=== PATIENT | female | born 2000 | race Caucasian/White ===

== ENCOUNTER → 2025-06-25 10:46 | Outpatient (REF) | payer OTHER, SELFPAY | LOC: OHS 10:46 | PROVIDERS: ATTENDING PHYSICIAN Nurse Practitioner Family | DX: Z23 Encounter for immunization (principal) | CPT/HCPCS: 36415; 86480; 86706 ==

== ENCOUNTER 2025-08-17 21:14 | Emergency (ER) | payer OTHER, SELFPAY ==
[2025-08-17 21:16] VITALS: BP 140/98
--- NOTE | 2025-08-17 21:58 | ED.GENMED ---
History of Present Illness
General
Chief Complaint: Abdominal Pain
Source: patient and family
Time Seen by Provider: 08/17/25 21:43
History of Present Illness
History of Present Illness:
This patient is a 24-year-old female who states she last ate around 1230 today and felt fine. Then, around 2 PM she developed several episodes of nonbloody vomiting and diarrhea which continues. She also notes generalized discomfort in the upper
abdomen and back. She checked her temperature at home with a Tmax of 99.5. She denies diaphoresis, chest pain, dyspnea, urinary symptoms, vaginal bleeding or discharge, leg swelling, or other complaints. Patient started Zepbound approximately 1
week ago and her last dose was yesterday, dose of 2.5 mg per
Past History
Past History
ED Past Medical History: Psychiatric (Anxiety) and Other (Endometriosis, migraines, 'connective tissue disorder'.)
ED Past Surgical History: Appendectomy, Gynecological and Orthopedic
Social History
Tobacco: Non-smoker
Alcohol: None
Drug: None
Personal: Single
Phy Exam
Physical Exam
Physical Exam:
GENERAL: Alert , in no apparent distress
EYE: pupils equal and reactive
NECK: Supple, no significant adenopathy.
ENT: o/p clr, mm dry
CARDIAC: Regular rate and rhythm .
LUNGS: Clear breath sounds bilaterally, no acute respiratory distress, no wheezes/rales/rhonchi
ABDOMEN: Soft, nonspecific upper and mid tenderness, no r/g, no cvat
NEUROLOGICAL: Alert and oriented, no focal neuro deficits
SKIN: Warm and dry, skin intact.
MUSCULOSKELETAL: No edema, well perfused.
PSYCH: Normal and appropriate interaction.
Course
Orders/Labs/Results
Orders:
Orders
08/17/25 21:57
Cardiac Monitoring- Treatment ONCE
0.9% Sodium Chloride 1000 ml [Nss] 1,000 ml IV BOLUS
Ondansetron Injectable [Zofran] 4 mg IV NOW STA
Obstruct Series W/PA Chest [CR Obstruct Series W/pa Chest] Urgent
Comment:
Reason For Exam: abd pain/n/v/d
08/17/25 22:21
Complete Blood Count/No Diff Urgent
Comprehensive Metabolic Panel Urgent
Lipase Urgent
08/17/25 23:53
Dicyclomine [Bentyl] 20 mg PO NOW STA
08/18/25 01:11
C difficile Antigen & Toxins Urgent
KATEY Source: Feces/Stool
Specimen Description:
Date Specimen was Collected: 08/18/25
Time Specimen was Collected: 01:12
Stool Culture Urgent
KATEY Source: Feces/Stool
Specimen Description:
Date Specimen was Collected: 08/18/25
Time Specimen was Collected: 01:12
Stool For WBC Urgent
KATEY Source: Feces/Stool
Specimen Description:
Date Specimen was Collected: 08/18/25
Time Specimen was Collected: 01:12
08/18/25 01:12
Ondansetron Injectable [Zofran] 4 mg IV NOW STA
Abnormal Lab Results
08/17/25
22:21
Chloride 108 H mmol/L
(98-107)
Total Protein 8.4 H g/dl
(6.3-8.2)
08/17/25 22:21
08/17/25 22:21
Vital Signs
Initial and Last Documented VS:
Initial Vital Signs
Temp Pulse Resp BP Pulse Ox
98.2 F 93 18 140/98 97
08/17/25 21:16 08/17/25 21:16 08/17/25 21:16 08/17/25 21:16 08/17/25 21:16
Last Documented Vital Signs
Temp Pulse Resp BP Pulse Ox
98.2 F 86 18 99/53 100
08/17/25 21:16 08/18/25 00:05 08/18/25 00:05 08/18/25 01:16 08/18/25 01:19
*Pulse Oximetry
SaO2: 97
Oxygen Mode of Delivery: Room air
Patient hypoxic: no
*Critical Care Note
Total Time (30-74mins, 75-104mins- exclusive of procedures): Not Applicable
Update Note
Update Note:
Patient presents to the Emergency Department with ____abdominal pain nausea vomiting diarrhea back pain
Number and Complexity of Problems Addressed at the Encounter
� Chronic conditions affecting care:
� Acute Exacerbation and/or Progression of Chronic Illness:
� Differential Diagnosis includes: But not limited to medication effect, pancreatitis, cholelithiasis, bowel obstruction, infectious gastroenteritis/colitis, etc.
Amount and/or Complexity of Data to be Reviewed and Analyzed
� I performed an independent evaluation of and my interpretation is:
EKG:
CT:
Xrays: Read by me, no obstruction
Laboratory Studies: Generally unremarkable, normal white blood cell count, normal lipase
Other:
� Review of other/old records reveals:
� Clinical information was obtained by an independent historian: Mom who is at bedside
� Prescriptions/Medications Considered but not given:
� Further testing considered but not performed:
Risk of Complications and/or Morbidity or Mortality of Patient Management
� Social determinants of health affecting care:
� Discussion with other providers (PCP, Hospitalists, Consultants, etc):
� Escalation of care including admission/observation vs risk of discharge considered: 1:51 AM multiple reassessments here, patient is tolerating liquids here without repeated vomiting. She did have 1 episode of loose stool, but
then has been unable to produce a sample. She denies bleeding. Abdomen remains soft, mildly tender, no rebound or guarding. Discussed with patient importance of follow-up and reasons to return to the ER. Will prescribe a short course of Zofran
as needed.
ED Attending Note
-
Portions of this chart may have been created with voice recognition software.� Occasional wrong word or��sound alike� substitutions may have occurred due to the inherent limitations of voice recognition software.
Discharge Plan
Departure
Patient Disposition: Home (Routine Discharge)
Date of Disposition: 08/18/25
Time of Disposition: 01:49
Patient with high blood pressure during this ER visit?: Yes
Condition: Good
Discharge Problem:
Abdominal pain, vomiting, and diarrhea
Instructions: Diarrhea in teens and adults, Nausea and Vomiting, Adult (DC), Abdominal Pain, BLOOD PRESSURE
Prescriptions:
New
ondansetron HCl 4 mg tablet
4 mg PO Q8H PRN (Reason: nausea and vomiting) Qty: 7 0RF
No Action
magnesium oxide 400 MG tablet
250 mg PO DAILY
calcium carbonate [Jayden-600] 600 mg calcium (1,500 mg) Tablet
500 mg PO DAILY
cholecalciferol (vitamin D3) [Vitamin D3] 10 mcg (400 unit) Capsule
1,000 unit PO DAILY
Ubrelvy 100 mg Tablet
100 mg PO ONCE PRN (Reason: migraines)
omeprazole 40 mg Capsule,Delayed Release(Dr/Ec)
40 mg PO DAILY
ketorolac 10 mg Tablet
10 mg PO Q6H PRN (Reason: pain from endometriosis)
Rx Instructions:
maximum total duration of 5 days from all oral, intranasal, or parenteral formulations
propranolol 10 mg Tablet
10 mg PO DAILY PRN (Reason: anxiety)
methocarbamol 750 mg Tablet
750 mg PO TID PRN (Reason: pain)
acetylcysteine (bulk) [O-Pfissj-J-Cysteine] Powder
MISCELLANEOUS DAILY
vitamin B complex [B Complex] Capsule
1 cap PO DAILY
[place] 3-6-9 1,200 mg Capsule
3,600 cap PO DAILY
Emgality Pen 120 mg/mL Pen Injector
120 mg SC QMONTH
drospirenone (contraceptive) 4 mg (28) Tablet
1 tab PO DAILY
Zepbound 2.5 mg/0.5 mL Pen Injector
2.5 mg SC QWEEK
Rx Instructions:
for 4 weeks
Probiotic
1 cap PO DAILY
Referrals:
Rima Sarkar MD [Family Provider, Internal Medicine] - Follow up in 2-3 days
Activity Restrictions/Additional Instructions:
IF YOU DEVELOP PERSISTENT NEW OR WORSENING PAIN, REPEATED VOMITING, BLEEDING, REPEATED DIARRHEA, FEVER, CHEST PAIN, SHORTNESS OF BREATH, DIZZINESS, GET WORSE, DO NOT GET BETTER, OR OTHER WORRISOME SIGNS, PLEASE RETURN TO THE ER IMMEDIATELY!
Interventions
Interventions:
*Risk Screen - Suicide Last Done: 08/17/25 21:16
*General Assessment Last Done: 08/17/25 21:16
*Neglect/Abuse Screening Last Done: 08/17/25 21:16
*ED- Fall Risk Assessment Last Done: 08/17/25 23:00
*ED COVID-19 Vaccine History Last Done: 08/17/25 23:22
*ED Influenza Vaccine History Last Done: 08/17/25 23:22
PN-Kmutee-Fcwjnntudx Assessment Last Done: 08/17/25 22:39
Discharge Date and Time
Print Language: LATVIAN
[2025-08-17] MEDS: NSS 1000 IV (22:24)
[2025-08-17] MEDS: ZOFRAN 4 MG IV (22:24)
[2025-08-17 22:26] VITALS: BMI 38.4
[2025-08-17 22:26] LABS: Hematocrit 39.2 % (37.0-47.0); Hemoglobin 13.0 g/dL (12.0-16.0); Mean Corp Hgb Conc. 33.2 g/dL (33.0-37.0); Mean Corpuscular Volume 83.2 fL (81.0-99.0); Platelet Count 354 10^3/uL (130-400); Red Cell Dist. Width 12.2 % (11.5-14.5)
[2025-08-17 22:43] VITALS: BP 114/63
[2025-08-17 22:55] LABS: ALT (SGPT) 34 U/L (0-35); AST (SGOT) 30 U/L (14-36); Albumin 4.8 g/dl (3.5-5.0); Alkaline Phosphatase 72 U/L (38-126); Blood Urea Nitrogen 13 mg/dl (7-17); Calcium 9.9 mg/dl (8.4-10.2); Carbon Dioxide 22 mmol/L (22-30); Chloride 108 mmol/L (98-107); Estimated Creatinine Clearance > 125 ml/min; Glucose 91 mg/dl (70-99); Lipase 122 U/L (23-300); Potassium 4.6 mmol/L (3.5-5.1); Sodium 139 mmol/L (135-145); Total Protein 8.4 g/dl (6.3-8.2); eGFR > 60.00
[2025-08-17 23:00] VITALS: BP 116/68
[2025-08-18] VITALS: BP 109/71
[2025-08-18] MEDS: BENTYL 20 MG PO (00:04)
[2025-08-18 01:16] VITALS: BP 99/53
[2025-08-18] MEDS: ZOFRAN 4 MG IV (01:17)
== END 2025-08-18 02:20 | disposition home or self-care (01) ==
LOC: EMR 21:14
PROVIDERS: EMERGENCY PHYSICIAN Emergency Medicine; FAMILY PHYSICIAN Hospitalist
DX: R10.9 Unspecified abdominal pain (principal); R11.2 Nausea with vomiting, unspecified; R19.7 Diarrhea, unspecified; Z90.49 Acquired absence of other specified parts of digestive tract
CPT/HCPCS: 99284; 96374; 96376; 96361; 74022; 80053; 83690; 85027; 87045; 87046; 87324; 87427; 87449; 89055

== ENCOUNTER → 2025-09-24 14:11 | Outpatient (REF) | payer OTHER, SELFPAY | LOC: OHS 14:11 | PROVIDERS: ATTENDING PHYSICIAN Nurse Practitioner Family | DX: Z23 Encounter for immunization (principal) | CPT/HCPCS: 36415; 86706 ==

== ENCOUNTER → 2025-11-04 10:53 | Outpatient (REF) | payer OTHER, SELFPAY | LOC: RAD 10:53 | PROVIDERS: ATTENDING PHYSICIAN Hospitalist | DX: N80.9 Endometriosis, unspecified (principal); R10.20 Pelvic and perineal pain unspecified side | CPT/HCPCS: 76830; 76856 ==

== ENCOUNTER → 2025-11-12 06:40 | Outpatient (REF) | payer OTHER, SELFPAY | LOC: RAD 06:40 | PROVIDERS: ATTENDING PHYSICIAN Hospitalist | DX: N80.9 Endometriosis, unspecified (principal); R10.20 Pelvic and perineal pain unspecified side | CPT/HCPCS: 74177; Q9967 ==